=== PATIENT | male | born 1975 | race Caucasian/White ===

== ENCOUNTER 2017-08-11 07:58 | Inpatient (IN) | payer MEDICAID, OTHER ==
[2017-08-11] VITALS (9 sets, daily range): BP systolic 120–157; BP diastolic 59–100; PULSE 56–103; RESP 16–30; TEMP 96–98.3; O2SAT 88–98
[~2017-08-11] VITALS: Ht 185.4 cm; Wt 110.0 kg
[~2017-08-11 07:58] MED LIST: MECL25 PO; NAPR220T95 OR; NAPR550 PO; TRIAMC.1%T TOP; Z.0.NO CURRENT MEDS
[2017-08-11] MEDS ORDERED: NALOXONE HCL 0.4 MG/ML AMP ONE (08:00)
[2017-08-11] MEDS ORDERED: NALOXONE HCL 2 MG/2 ML VIAL ONE ×2 (08:05→08:06)
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
[2017-08-11] MEDS ORDERED: NALOXONE HCL 2 MG/2 ML VIAL IV PUSH ONE (08:15)
[2017-08-11] MEDS ORDERED: NALOXONE HCL 0.4 MG/ML AMP IV PUSH ONE (08:15)
[2017-08-11] MEDS ORDERED: ONDANSETRON HCL 4 MG/2 ML VIAL IV PUSH ONE (08:15)
[2017-08-11] MEDS ORDERED: ASPIRIN 81 MG CHEW TAB PO ONE (08:30)
[2017-08-11] MEDS ORDERED: NITROGLYCERIN 2% OINT 1 GM PACKET TOP ONE (08:30)
[2017-08-11 08:42] LABS: AUTOMATED NEUTROPHIL # 5.9 TH/MM3 (1.8-7.7); BASOPHIL # 0.1 TH/MM3 (0-0.2); BASOPHIL % 0.6 % (0.0-2.0); EOSINOPHIL % 0.2 % (0.0-4.0); HEMATOCRIT 47.1 % (39.0-51.0); HEMO FLAGS DIFF FINAL; LYMPH % 43.2 % (9.0-44.0); MEAN CELL VOLUME 87.9 FL (80.0-100.0); MEAN CORPUSCULAR HEMOGLOBIN 30.4 PG (27.0-34.0); MEAN CORPUSCULAR HGB CONC 34.6 % (32.0-36.0); MONO % 5.4 % (0.0-8.0); NEUT % 50.6 % (16.0-70.0); PLATELET COUNT 236 TH/MM3 (150-450); RED BLOOD COUNT 5.36 MIL/MM3 (4.50-5.90); RED CELL DISTRIBUTION WIDTH 14.6 % (11.6-17.2); WHITE BLOOD COUNT 11.6 TH/MM3 (4.0-11.0)
[2017-08-11 08:50] LABS: APTT (PATIENT) 24.5 SEC (24.3-30.1); PROTHROMBIN TIME - PATIENT 10.9 SEC (9.8-11.6)
--- NOTE | 2017-08-11 08:57 | RADRPT ---
EXAM DATE/TIME: 08/11/2017 08:24 [facility] COMPARISON: No previous studies available for comparison. INDICATIONS : Low pulse ox. MEDICAL HISTORY : None. SURGICAL HISTORY : None. ENCOUNTER: Initial ACUITY: 1 day PAIN SCORE: Non-responsive. LOCATION: Bilateral chest FINDINGS: A single portable frontal view the chest shows a top normal heart size. A patchy parenchymal opacity is seen within both lung bases medially. No effusions. Bony structures are unremarkable. CONCLUSION: 1. Top normal heart size. 2. Bibasilar parenchymal consolidations potentially related to atelectasis. Jb Morejon Jr., MD on August 11, 2017 at 8:53 Board Certified Radiologist. This report was verified electronically.
[2017-08-11 09:07] LABS: ALKALINE PHOSPHATASE 75 U/L (45-117); ALT (GPT) 68 U/L (12-78); ANION GAP 19 MEQ/L (5-15); AST (GOT) 43 U/L (15-37); BICARBONATE 14.8 MEQ/L (21.0-32.0); BLOOD UREA NITROGEN 11 MG/DL (7-18); CHLORIDE 102 MEQ/L (98-107); GLOMERULAR FILTRATION RATE 52 ML/MIN (>89); SODIUM (NA) 136 MEQ/L (136-145); TOTAL BILIRUBIN ADULT 0.4 MG/DL (0.2-1.0)
[2017-08-11 09:17] LABS: POTASSIUM 2.4 MEQ/L (3.5-5.1)
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
[2017-08-11] MEDS ORDERED: POTASSIUM CHLOR 20 MEQ PREMIX 100 ML IV ONE (09:30)
[2017-08-11] MEDS ORDERED: CLINDAMYCIN INJ 600 MG in SODIUM CHLORIDE 0.9% INJ 100 ML IV ONE (10:30)
[2017-08-11] MEDS ORDERED: LEVOFLOXACIN 500 MG PREMIX INJ 100 ML IV ONE (10:30)
[2017-08-11] MEDS ORDERED: SODIUM CHLORIDE 0.9% FLUSH 10 ML FLUSH IV FLUSH PRN ×2 (10:45→11:15)
--- NOTE | 2017-08-11 10:53 | HHI.HP ---
HPI Service Family Medicine Primary Care Physician No Primary Care Physician Admission Diagnosis OPIATE OVERDOSE/HYPOKALEMIA/NBA LUNG INFILTRATE Diagnoses: International Travel<30 Days: No (UTO ) Contact w/Intl Traveler<30days: No (UTO ) History of Present Illness CC: "I guess I passed out" Patient is a 42 year old male with history of HTN and drug use who presents via [facility] after being found unconscious in his car. The car was running but patient was unconscious and not breathing, responding to Narcan 0.4mg IV dose. He reports feeling foggy at time of interview. He required 2.8mg Narcan in divided doses in ED prior to admission to hospital and is noted to be significantly hypokalemic. Last night he went to [facility] in [place]. He reports snorting heroin, "wasn't a lot." He does not recall what happened after that. He feels tired and short of breath. He denies chest pain. He has noted dyspnea worsening over the last couple of months, but is nonspecific in describing it. It has been associated with minimal activity ("talking") and exertion at work. He works at [employer] and exertion during work triggers inability to catch his breath. (Tara Vidal MD R2) Review of Systems Constitutional: DENIES: Fever, Weight gain, Weight loss, Chills Eyes: DENIES: Blurred vision, Diplopia, Eye pain Respiratory: DENIES: Cough, Wheezing Cardiovascular: COMPLAINS OF: Syncope, Lower Extremity Edema, DENIES: Chest pain, Palpitations, Claudication Gastrointestinal: DENIES: Abdominal pain, Black stools, Bloody stools, Constipation, Diarrhea, Nausea, Vomiting, Difficulty Swallowing Genitourinary: DENIES: Urinary incontinence, Urgency, Hematuria, Dysuria Integumentary: DENIES: Pruritus, Rash Hematologic/lymphatic: DENIES: Bruising, Lymphadenopathy Neurologic: DENIES: Headache, Localized weakness, Paresthesias, Seizures, Poor Balance Psychiatric: DENIES: Anxiety, Depression, Suicidal Ideation, Homicidal Ideation (Tara Vidal MD R2) Past Family Social History Past Medical History HTN - not on meds Past Surgical History Meniscectomy L knee Reported Medications None reported (Tara Vidal MD R2) Allergies: Coded Allergies: Sulfa (Sulfonamide Antibiotics) (Unverified Allergy, Mild, UNKN, 08/11/17) carbamazepine (Unverified Allergy, Mild, UNKN, 08/11/17) Active Ordered Medications Inpatient Medications Aspirin (Aspirin Chew) 162 mg ONCE ONCE PO Last administered on 08/11/17 08: 42; Start 08/11/17 at 08:30; Stop 08/11/17 at 08:31; Status DC Clindamycin Phosphate 600 mg/ Sodium Chloride 104 ml @ 208 mls/hr ONCE ONCE IV ; Start 08/11/17 at 10:30; Stop 08/11/17 at 10:59 Levofloxacin/ Dextrose 100 ml @ 100 mls/hr ONCE ONCE IV ; Start 08/11/17 at 10:30; Stop 08/11/17 at 11:29 Naloxone HCl (Narcan Inj) 0.4 mg ONCE ONCE IV PUSH Last administered on 08:03; Start 08/11/17 at 08:15; Stop 08/11/17 at 08:16; Status DC Nitroglycerin (Nitroglycerin 2% Oint) 1 inch ONCE ONCE TOP Last administered on 08/11/17 08:42; Start 08/11/17 at 08:30; Stop 08/11/17 at 08:31; Status DC Ondansetron HCl (Zofran Inj) 4 mg ONCE ONCE IV PUSH Last administered on 08/11 08:22; Start 08/11/17 at 08:15; Stop 08/11/17 at 08:16; Status DC Potassium Chloride 100 ml @ 50 mls/hr ONCE ONCE IV Last administered on 08/11 09:57; Start 08/11/17 at 09:30; Stop 08/11/17 at 11:29 Family History Adopted, unknown family history Social History Lives with his mother and 9 year old son Tobacco 1/2-1PPD x 20 years Cocaine, heroin last use last night, "not regularly" ETOH: drinks Rum and Coke, 2x weeks (Tara Vidal MD R2) Physical Exam Vital Signs Vital Signs Date Time Temp Pulse Resp B/P (MAP) Pulse Ox O2 Delivery O2 Flow Rate FiO2 08/11/17 08:55 83 20 127/70 (89) 94 Nasal Cannula 6.00 08/11/17 08:03 94 Nasal Cannula 6.00 08/11/17 08:03 30 88 Room Air 08/11/17 08:00 98.3 103 30 157/100 (002) 88 Physical Exam GENERAL: well-nourished well-developed obese white male in NAD SKIN: Warm and dry. No rashes or ecchymoses HEAD: Atraumatic. Normocephalic. EYES: Pupils equal and round. No scleral icterus. No injection or drainage. ENT: No nasal bleeding or discharge. Mucous membranes pink and moist. NECK: Trachea midline. No LAD or thyromegaly. CARDIOVASCULAR: Regular rate and rhythm. No murmurs, gallops, or rubs noted. No JVD. Normal 2+ pulses in distal extremities bilaterally. RESPIRATORY: No accessory muscle use. Clear to auscultation. Breath sounds equal bilaterally. GASTROINTESTINAL: Abdomen soft, non-tender, nondistended. Obese. Hepatic and splenic margins not palpable. MUSCULOSKELETAL: Extremities without clubbing, cyanosis, or edema. No obvious deformities. NEUROLOGICAL: Awake and alert. No cranial nerve deficits. Motor grossly within normal limits. General strength exam is normal. Normal speech. PSYCHIATRIC: Appropriate mood and affect; insight and judgment normal. No SI/HI. Laboratory Laboratory Tests Test 08/11/17 08:15 White Blood Count 11.6 Red Blood Count 5.36 Hemoglobin 16.3 Hematocrit 47.1 Mean Corpuscular Volume 87.9 Mean Corpuscular Hemoglobin 30.4 Mean Corpuscular Hemoglobin Concent 34.6 Red Cell Distribution Width 14.6 Platelet Count 236 Mean Platelet Volume 8.0 Neutrophils (%) (Auto) 50.6 Lymphocytes (%) (Auto) 43.2 Monocytes (%) (Auto) 5.4 Eosinophils (%) (Auto) 0.2 Basophils (%) (Auto) 0.6 Neutrophils # (Auto) 5.9 Lymphocytes # (Auto) 5.0 Monocytes # (Auto) 0.6 Eosinophils # (Auto) 0.0 Basophils # (Auto) 0.1 CBC Comment DIFF FINAL Differential Comment Prothrombin Time 10.9 Prothromb Time International Ratio 1.0 Activated Partial Thromboplast Time 24.5 Blood Urea Nitrogen 11 Creatinine 1.50 Random Glucose 251 Total Protein 8.0 Albumin 4.0 Calcium Level 8.5 Alkaline Phosphatase 75 Aspartate Amino Transf (AST/SGOT) 43 Alanine Aminotransferase (ALT/SGPT) 68 Total Bilirubin 0.4 Sodium Level 136 Potassium Level 2.4 Chloride Level 102 Carbon Dioxide Level 14.8 Anion Gap 19 Estimat Glomerular Filtration Rate 52 Troponin I LESS THAN 0.02 Lipase 300 (Tara Vidal MD R2) Result Diagram: 08/11/1781408/11/17814 Imaging Last Impressions Head CT 08/11/17809 Signed Impressions: Service Date/Time: Friday, August 11, 2017 09:04 - CONCLUSION: Normal examination. Jb Morejon Jr., MD Chest X-Ray 08/11/17809 Signed Impressions: Service Date/Time: Friday, August 11, 2017 08:24 - CONCLUSION: 1. Top normal heart size. 2. Bibasilar parenchymal consolidations potentially related to atelectasis. Jb Morejon Jr., MD Abdomen/Pelvis CT 08/11/17809 Signed Impressions: Service Date/Time: Friday, August 11, 2017 09:07 - CONCLUSION: 1. Bibasilar groundglass opacities which likely reflects atelectasis. However, differential considerations include aspiration given history of unresponsiveness. 2. Otherwise, no acute CT findings in the abdomen or pelvis. Oscar Granados MD (Tara Vidal MD R2) Caprini VTE Risk Assessment Caprini VTE Risk Assessment: Mod/High Risk (score >= 2) Caprini Risk Assessment Model Point Value = 1 Point Value = 2 Point Value = 3 Point Value = 5 Age 41-60 Minor surgery BMI > 25 kg/m2 Swollen legs Varicose veins or History of unexplained or recurrent spontaneous Oral contraceptives or hormone replacement Sepsis (< 1 month) Serious lung disease, including pneumonia (< 1 month) Abnormal pulmonary function Acute myocardial infarction Congestive heart failure (< 1 month) History of inflammatory bowel disease Medical patient at bed rest Age 61-74 Arthroscopic surgery Major open surgery (> 45 min) Laparoscopic surgery (> 45 min) Malignancy Confined to bed (> 72 hours) Immobilizing plaster cast Central venous access Age >= 75 History of VTE Family history of VTE Factor V Leiden Prothrombin [id number] Lupus anticoagulant Anticardiolipin antibodies Elevated serum homocysteine Heparin-induced thrombocytopenia Other congenital or acquired thrombophilia Stroke (< 1 month) Elective arthroplasty Hip, pelvis, or leg fracture Acute spinal cord injury (< 1 month) Prophylaxis Regimen Total Risk Factor Score Risk Level Prophylaxis Regimen 0-1 Low Early ambulation 2 Moderate Order ONE of the following: *Sequential Compression Device (SCD) *Heparin 5000 units SQ BID 3-4 Higher Order ONE of the following medications: *Heparin 5000 units SQ TID *Enoxaparin/Lovenox 40 mg SQ daily (WT < 150 kg, CrCl > 30 mL/min) *Enoxaparin/Lovenox 30 mg SQ daily (WT < 150 kg, CrCl > 10-29 mL/min) *Enoxaparin/Lovenox 30 mg SQ BID (WT < 150 kg, CrCl > 30 mL/min) AND/OR *Sequential Compression Device (SCD) 5 or more Highest Order ONE of the following medications: *Heparin 5000 units SQ TID (Preferred with Epidurals) *Enoxaparin/Lovenox 40 mg SQ daily (WT < 150 kg, CrCl > 30 mL/min) *Enoxaparin/Lovenox 30 mg SQ daily (WT < 150 kg, CrCl > 10-29 mL/min) *Enoxaparin/Lovenox 30 mg SQ BID (WT < 150 kg, CrCl > 30 mL/min) AND *Sequential Compression Device (SCD) (Tara Vidal MD R2) Assessment and Plan Assessment and Plan 42 year old male with history of untreated HTN and drug abuse who presents unresponsive with suspected drug overdose. He responded well to Narcan in the ED and is responsive and breathing comfortably at time of admission. Basic labs, CXR, CT brain, CT chest ordered in ED and notable for hypokalemia, atelectasis vs. pneumonitis, ISMAEL. EKG additionally notable for ST depressions in leads V4-V6. He will be admitted for close monitoring of cardiac enzymes, respiratory status , and electrolyte dyscrasia. He meets inpatient criteria based on hypokalemia. Code Status FULL CODE Discussed Condition With Dr. Doreen Manzanraes (Tara Vidal MD R2) Problem List: (1) Acute drug intoxication ICD Codes: F19.929 - Other psychoactive substance use, unspecified with intoxication, unspecified Status: Acute Plan: Acute drug intoxication per patient report, taking heroin and cocaine. He required Narcan 2.8mg in route to ED and in ED, and is now alert and in NAD. GCS reportedly 4 on scene prior to Narcan, now 15. * UDS * ETOH, Salicylates, Tylenol ordered * Monitor closely on med surg floor, escalate care as needed. (2) Abnormal finding on EKG ICD Codes: R94.31 - Abnormal electrocardiogram [ECG] [EKG] Status: Acute Plan: Noted to have ST depressions in leads V4-V6. Troponin negative x 1. * Repeat EKG stat now * Trend cardiac enzymes q6hr * Telemetry * In ED: Aspirin 162mg x 1, nitropaste (3) Hypokalemia ICD Codes: E87.6 - Hypokalemia Status: Acute Plan: Noted. ED intervention = 20meq KCl (4) Atelectasis ICD Codes: J98.11 - Atelectasis Status: Acute Plan: Noted on CXR and CT chest, possible diagnoses include aspiration pneumonitis, aspiration PNA, atelectasis, CAP. Not hypoxic at this time, but on NC. * Monitor oxygenation, goal sat >93% * Consider repeat CXR for better exposure, PA and lateral * Pt received Clidamycin and Levaquin in ED x 1 dose each (5) ISMAEL (acute kidney injury) ICD Codes: N17.9 - Acute kidney failure, unspecified Status: Acute Plan: Noted. Baseline is normal. Suspect pre-renal etiology, likely dehydration * Repeat BMP this afternoon * Monitor BMP daily * Avoid nephrotoxin agents (6) HTN, goal below 140/80 ICD Codes: I10 - Essential (primary) hypertension Status: Chronic Plan: Monitor closely. History of amlodipine use. Will consider restarting. No PCP * PRN clonidine for SBP >180/100 (7) Fluids/Electrolytes/Nutrition/Prophylaxis Status: Acute Plan: Fluids: swallow study at bedside, then NPO until repeat EKG/troponin, then possibly PO hydration Electrolytes: HypoK noted. Repletion PO. Monitor and replete as needed Nutrition: NPO, then heart-healthy diet once cleared DVT Prophylaxis: Early ambulation. Lovenox 40mg subQ q24hr/bilateral SCDs GI Prophylaxis: Protonix 40mg PO daily Disposition: pending cardiac workup, observation, PT eval, possibly discharge tomorrow (Tara Vidal MD R2) Physician Certification 2 Midnight Certification Type: Admission for Inpatient Services Order for Inpatient Services The services are ordered in accordance with Medicare regulations or non- Medicare payer requirements, as applicable. In the case of services not specified as inpatient-only, they are appropriately provided as inpatient services in accordance with the 2-midnight benchmark. Estimated LOS (days): 3 days is the estimated time the patient will need to remain in the hospital, assuming treatment plan goals are met and no additional complications. Post-Hospital Plan: Not yet determined (Tara Vidal MD R2) Notes: Patient seen and examined. Case reviewed and discussed with the resident team. Agree with plan of care as discussed with me and documented in the resident note. (Doreen Toro MD) Problem Qualifiers (1) Acute drug intoxication: Qualified Codes: F19.929 - Other psychoactive substance use, unspecified with intoxication, unspecified Tara Vidal MD R2 Aug 11, 2017 10:53 Doreen Toro MD Aug 11, 2017 15:41
[2017-08-11] MEDS ORDERED: ACETAMINOPHEN 325 MG TAB PO PRN (11:15)
[2017-08-11] MEDS ORDERED: MAGNESIUM HYDROXIDE SUSP 30 ML CUP PO PRN (11:15)
[2017-08-11] MEDS ORDERED: LORazepam 2 MG/ML VIAL IV PUSH PRN ×4 (11:15)
[2017-08-11] MEDS ORDERED: BISACODYL 10 MG SUPP RECTAL PRN (11:15)
[2017-08-11] MEDS ORDERED: LORazepam 2 MG TAB PO PRN (11:15)
[2017-08-11] MEDS ORDERED: SENNOSIDES 8.6 MG TAB PO PRN (11:15)
[2017-08-11] MEDS ORDERED: NALOXONE HCL 0.4 MG/ML AMP IV PUSH PRN ×2 (11:15→11:45)
[2017-08-11] MEDS ORDERED: POTASSIUM CHLORIDE 10 MEQ CONTROLLED RELEASE TAB PO ONE (11:15)
[2017-08-11] MEDS ORDERED: ONDANSETRON HCL 4 MG/2 ML VIAL IVP PRN (11:15)
[2017-08-11] MEDS ORDERED: LACTULOSE SYRUP 20 GM/30 ML CUP PO PRN (11:15)
[2017-08-11] MEDS ORDERED: SODIUM CHLORIDE 0.9% FLUSH 10 ML FLUSH IV FLUSH SCH (11:15)
[2017-08-11] MEDS ORDERED: FLUMAZENIL 0.5 MG/5 ML VIAL IV PUSH PRN (11:15)
[2017-08-11] MEDS ORDERED: LORazepam 1 MG TAB PO PRN (11:15)
--- NOTE | 2017-08-11 11:19 | HHI.FPPN ---
Subjective Remarks Pt. seen, examined and discussed with the Med A team. This is a 42 yo male who was found unresponsive in his car in a neighbor's yard this a.m. He was given Narcan 0.4 X2 in the field and was able to breathe on his own. He was transported to [facility] ED where he required 2 more doses of Narcan 0.4. He is seen on 5 liters O2 via nc, complaining of some mild SOB with no CP. He reports that he took heroin and cocaine which he snorted last night after work. He went to a bar and was given this substance. He often uses heroin an cocaine and drinks Rum and coke fairly frequently. Denies ever having injected drugs. Currently on no medications or supplements; no herbals. Has never blacked out or had withdrawal. He had seizures as a child but none as an adult. Has a young son, with whom he lives, as well as his mother. Works for [employer]. He is between doctors at this time, having been diagnosed with HTN and was on Norvasc 10 mg in the past. See H&P for this admission for additional past, family and social history as well as the ROS at the time of admission. Objective Vitals Vital Signs Date Time Temp Pulse Resp B/P (MAP) Pulse Ox O2 Delivery O2 Flow Rate FiO2 08/11/17 08:55 83 20 127/70 (89) 94 Nasal Cannula 6.00 08/11/17 08:03 94 Nasal Cannula 6.00 08/11/17 08:03 30 88 Room Air 08/11/17 08:00 98.3 103 30 157/100 (119) 88 Result Diagram: 08/11/17 0815 08/11/1715 Other Results Laboratory Tests Test 08/11/17 08:15 White Blood Count 11.6 TH/MM3 Red Blood Count 5.36 MIL/MM3 Hemoglobin 16.3 GM/DL Hematocrit 47.1 % Mean Corpuscular Volume 87.9 FL Mean Corpuscular Hemoglobin 30.4 PG Mean Corpuscular Hemoglobin Concent 34.6 % Red Cell Distribution Width 14.6 % Platelet Count 236 TH/MM3 Mean Platelet Volume 8.0 FL Neutrophils (%) (Auto) 50.6 % Lymphocytes (%) (Auto) 43.2 % Monocytes (%) (Auto) 5.4 % Eosinophils (%) (Auto) 0.2 % Basophils (%) (Auto) 0.6 % Neutrophils # (Auto) 5.9 TH/MM3 Lymphocytes # (Auto) 5.0 TH/MM3 Monocytes # (Auto) 0.6 TH/MM3 Eosinophils # (Auto) 0.0 TH/MM3 Basophils # (Auto) 0.1 TH/MM3 CBC Comment DIFF FINAL Differential Comment Prothrombin Time 10.9 SEC Prothromb Time International Ratio 1.0 RATIO Activated Partial Thromboplast Time 24.5 SEC Blood Urea Nitrogen 11 MG/DL Creatinine 1.50 MG/DL Random Glucose 251 MG/DL Total Protein 8.0 GM/DL Albumin 4.0 GM/DL Calcium Level 8.5 MG/DL Alkaline Phosphatase 75 U/L Aspartate Amino Transf (AST/SGOT) 43 U/L Alanine Aminotransferase (ALT/SGPT) 68 U/L Total Bilirubin 0.4 MG/DL Sodium Level 136 MEQ/L Potassium Level 2.4 MEQ/L Chloride Level 102 MEQ/L Carbon Dioxide Level 14.8 MEQ/L Anion Gap 19 MEQ/L Estimat Glomerular Filtration Rate 52 ML/MIN Troponin I LESS THAN 0.02 NG/ML Lipase 300 U/L 12 lead EKG shows some ST depression in multiple leads. Imaging Last [address] 08/11/17809 Signed Impressions: Service Date/Time: Friday, August 11, 2017 09:04 - CONCLUSION: Normal examination. Jb Morejon Jr., MD Chest X-Ray 08/11/17809 Signed Impressions: Service Date/Time: Friday, August 11, 2017 08:24 - CONCLUSION: 1. Top normal heart size. 2. Bibasilar parenchymal consolidations potentially related to atelectasis. Jb Morejon Jr., MD Abdomen/Pelvis CT 08/11/17809 Signed Impressions: Service Date/Time: Friday, August 11, 2017 09:07 - CONCLUSION: 1. Bibasilar groundglass opacities which likely reflects atelectasis. However, differential considerations include aspiration given history of unresponsiveness. 2. Otherwise, no acute CT findings in the abdomen or pelvis. Oscar Granados MD Objective Remarks O. CONSTITUTIONAL/GEN: normally nourished, in NAD. Drowsy, complaining of dry mouth. EYES: conjunctiva normal, PERRLA but slightly miotic, EOMI. ENT: Mouth and pharynx normal. NECK: thyroid midline, carotids symmetrical. LUNGS: clear posteriorly after a cough, respiratory effort is normal. CARDIOVASCULAR: RR without murmur or gallop. No significant edema. GI/ABD: soft without masses, without organomegaly. BS scant. : no CVA tenderness NEURO: No focal deficits. SKIN: color normal, no rashes noted. HEME/LYMPH: no bruising, petechia or significant adenopathy MUSC: back is normal in appearance. Extremities are normal in appearance. PSYCH/MENTAL STATUS: Alert and oriented x 3. A/P Assessment and Plan polysubstance abuse, tobacco abuse Discharge Planning Anticipate discharge tomorrow if labs and EKG stable. Attending Attestation Patient seen and examined. Case reviewed and discussed with the resident team. Agree with plan of care as discussed with me and documented in the resident note. Doreen Toro MD Aug 11, 2017 11:19
[2017-08-11] MEDS ORDERED: MORPHINE SULFATE 2 MG/ML INJ IV PUSH PRN (11:45)
[2017-08-11] MEDS ORDERED: NITROGLYCERIN 0.4 MG SL 25 TABS/BTL SL PRN (11:45)
[2017-08-11] MEDS ORDERED: cloNIDine HCL 0.1 MG TAB PO PRN (11:45)
[2017-08-11 11:58] LABS: ALCOHOL 95 MG/DL (0-5)
[2017-08-11 11:59] LABS: ACETAMINOPHEN LESS THAN 2.0 MCG/ML (10.0-30.0)
[2017-08-11] MEDS ORDERED: ENOXAPARIN SODIUM 40 MG/0.4 ML SYRINGE SQ SCH (14:00)
[2017-08-11] MEDS ORDERED: MULTIVITAMIN INJ 10 ML, THIAMINE INJ 100 MG, FOLIC ACID INJ 1 MG in SODIUM CHLORID 0.9%... IV SCH (14:00)
[2017-08-11] MEDS: PANTOPRAZOLE SOD 40 MG DELAYED RELEASE TAB PO SCH (16:39)
[2017-08-11] MEDS: DOCUSATE SODIUM 50 MG/SENNA 8.6 MG TAB PO SCH (21:01)
[2017-08-11] MEDS: SODIUM CHLORIDE 0.9% FLUSH 10 ML FLUSH IV FLUSH SCH (21:01)
--- NOTE | 2017-08-11 21:07 | EKG ---
Date Performed: 08/11/2017 Time Performed: 08:03:13 PTAGE: 42 years EKG: SINUS TACHYCARDIA INCOMPLETE RIGHT BUNDLE BRANCH BLOCK MODERATE ST DEPRESSION ABNORMAL ECG NO PREVIOUS TRACING DOCTOR: Greg Doherty Interpretating Date/Time 08/11/2017 21:06:58
[2017-08-11] MEDS ORDERED: GLUCAGON 1 MG/ML VIAL OTHER PRN (22:15)
[2017-08-11] MEDS ORDERED: DEXTROSE 50% IN WATER 50 ML VIAL(D50) IV PUSH PRN (22:15)
[2017-08-12] VITALS: BP 117/71; PULSE 62; RESP 17; TEMP 96.8; O2SAT 98
[2017-08-12 01:15] LABS: POTASSIUM 4.1 MEQ/L (3.5-5.1)
[2017-08-12 04:00] VITALS: BP 124/73; PULSE 78; RESP 17; TEMP 97.2; O2SAT 98
[2017-08-12] MEDS: INSULIN ASPART SUPPLEMENTAL SCALE SQ SCH ×2 (07:57→11:23)
[2017-08-12 08:00] VITALS: BP 139/92; PULSE 51; RESP 21; TEMP 97.1; O2SAT 94; O2SAT 96
[2017-08-12] MEDS: PANTOPRAZOLE SOD 40 MG DELAYED RELEASE TAB PO SCH (08:38)
[2017-08-12] MEDS: DOCUSATE SODIUM 50 MG/SENNA 8.6 MG TAB PO SCH (08:38)
[2017-08-12] MEDS: SODIUM CHLORIDE 0.9% FLUSH 10 ML FLUSH IV FLUSH SCH (08:38)
[2017-08-12 08:44] LABS: BLOOD, URINE NEG (NEG); COMMENT (UR) CULT NOT INDICATED; CULTURE IF INDICATED CULT NOT INDICATED; GLUCOSE,URINE NEG (NEG); KETONE, URINE NEG (NEG); MUCUS URINE FEW /lpf (OCC); NITRITE,URINE NEG (NEG); SQUAMOUS EPITHELIAL CELL URINE <1 /hpf (0-5); URINE COLOR YELLOW (YELLW/STRAW)
--- NOTE | 2017-08-12 08:49 | RADRPT ---
EXAM DATE/TIME: 08/12/2017 08:40 [facility] COMPARISON: CHEST SINGLE AP, August 11, 2017, 8:24. INDICATIONS : Dyspnea MEDICAL HISTORY : None. SURGICAL HISTORY : None. ENCOUNTER: Subsequent ACUITY: 2 days PAIN SCORE: Non-responsive. LOCATION: chest FINDINGS: A single view of the chest demonstrates the lungs to be symmetrically aerated without evidence of mas s, infiltrate or effusion. The cardiomediastinal contours are unremarkable. Osseous structures are intact. CONCLUSION: 1. No acute cardiopulmonary disease. Oscar Granados MD on August 12, 2017 at 8:48 Board Certified Radiologist. This report was verified electronically.
[2017-08-12 09:02] LABS: AUTOMATED NEUTROPHIL # 3.6 TH/MM3 (1.8-7.7); BASOPHIL % 0.5 % (0.0-2.0); EOSINOPHIL % 0.6 % (0.0-4.0); HEMATOCRIT 42.4 % (39.0-51.0); HEMO FLAGS DIFF FINAL; LYMPH % 44.1 % (9.0-44.0); LYMPHOCYTE # 3.3 TH/MM3 (1.0-4.8); MEAN CELL VOLUME 86.9 FL (80.0-100.0); MEAN CORPUSCULAR HEMOGLOBIN 30.2 PG (27.0-34.0); MEAN CORPUSCULAR HGB CONC 34.7 % (32.0-36.0); MONO % 6.6 % (0.0-8.0); NEUT % 48.2 % (16.0-70.0); PLATELET COUNT 186 TH/MM3 (150-450); RED BLOOD COUNT 4.88 MIL/MM3 (4.50-5.90); RED CELL DISTRIBUTION WIDTH 14.9 % (11.6-17.2); WHITE BLOOD COUNT 7.5 TH/MM3 (4.0-11.0)
[2017-08-12 09:34] LABS: ANION GAP 8 MEQ/L (5-15); AST (GOT) 38 U/L (15-37); BICARBONATE 23.7 MEQ/L (21.0-32.0); BLOOD UREA NITROGEN 13 MG/DL (7-18); CHLORIDE 105 MEQ/L (98-107); GLOMERULAR FILTRATION RATE 69 ML/MIN (>89); POTASSIUM 3.9 MEQ/L (3.5-5.1); SODIUM (NA) 137 MEQ/L (136-145)
[2017-08-12 09:38] LABS: ALKALINE PHOSPHATASE 58 U/L (45-117); ALT (GPT) 63 U/L (12-78); TOTAL BILIRUBIN ADULT 0.7 MG/DL (0.2-1.0)
--- NOTE | 2017-08-12 10:42 | HHI.DCPOC ---
Discharge Care Plan Diagnosis: (1) Acute drug intoxication (2) ISMAEL (acute kidney injury) (3) HTN, goal below 140/80 Goals to Promote Your Health * To prevent worsening of your condition and complications * To maintain your health at the optimal level Directions to Meet Your Goals Take your medications as prescribed Follow your dietary instruction Follow activity as directed Keep your appointments as scheduled Take your immunizations and boosters as scheduled If your symptoms worsen call your PCP, if no PCP go to Urgent Care Center or Emergency Room Smoking is Dangerous to Your Health. Avoid second hand smoke Call the 24-hour hour crisis hotline for domestic abuse at Tara Vidal MD R2 Aug 12, 2017 10:42
--- NOTE | 2017-08-12 10:43 | HHI.FPPN ---
Subjective Remarks Patient was seen and examined this morning. He symptomatically had improved back to baseline. He denied any fevers, chills, chest pain, shortness of breath , nausea, vomiting, headaches, confusion. He recalls that he went to a democrat the night before admission and was given a singular pill of unknown identity from someone he did not know. He was told it was synthetic heroin. The next year remembers is being at [place] yesterday. He is eating and drinking without difficulty. He is ready to be discharged. (Tara Vidal MD R2) Objective Vitals Vital Signs Date Time Temp Pulse Resp B/P (MAP) Pulse Ox O2 Delivery O2 Flow Rate FiO2 08/12/17 08:00 96 21 08/12/17 08:00 97.1 51 21 139/92 (108) 94 08/12/17 04:00 97.2 78 17 124/73 (90) 98 08/12/17 00:00 96.8 62 17 117/71 (86) 98 08/11/17 22:08 20 08/11/17 22:07 93 Nasal Cannula 4.00 08/11/17 20:00 96.0 60 17 120/74 (89) 98 08/11/17 20:00 56 08/11/17 16:00 96.6 62 17 138/85 (102) 94 08/11/17 13:40 96.4 64 17 136/87 (103) 97 08/11/17 12:54 08/11/17 12:50 73 20 130/59 (82) 97 Nasal Cannula 4.00 08/11/17 11:22 96 Nasal Cannula 5.00 08/11/17 11:13 71 16 134/71 (92) 95 Nasal Cannula 6.00 I/O 08/11/17 08/11/17 08/11/17 08/12/17 08/12/17 08/12/17 07:00 15:00 23:00 07:00 15:00 23:00 Intake Total 300 ml 0 ml 240 ml 120 ml Balance 300 ml 0 ml 240 ml 120 ml Intake Oral 0 ml 240 ml 120 ml IV Total 300 ml # Voids 2 2 # Bowel Movements 0 (Tara Vidal MD R2) Result Diagram: 08/12/17 0755 08/12/17 0755 Imaging Last Impressions Chest X-Ray 08/12/17 0000 Signed Impressions: Service Date/Time: July 08:40 - CONCLUSION: 1. No acute cardiopulmonary disease. Oscar Granados MD Head CT 08/11/17809 Signed Impressions: Service Date/Time: Friday, August 11, 2017 09:04 - CONCLUSION: Normal examination. Jb Morejon Jr., MD Abdomen/Pelvis CT 08/11/17809 Signed Impressions: Service Date/Time: Friday, August 11, 2017 09:07 - CONCLUSION: 1. Bibasilar groundglass opacities which likely reflects atelectasis. However, differential considerations include aspiration given history of unresponsiveness. 2. Otherwise, no acute CT findings in the abdomen or pelvis. Oscar Granados MD Objective Remarks GENERAL: well-nourished well-developed obese white male in NAD. He is lying in bed comfortably. SKIN: Warm and dry. No rashes or ecchymoses HEAD: Atraumatic. Normocephalic. EYES: Pupils equal and round. No scleral icterus. No injection or drainage. ENT: No nasal bleeding or discharge. Mucous membranes pink and moist. NECK: Trachea midline. No LAD or thyromegaly. CARDIOVASCULAR: Regular rate and rhythm. No murmurs, gallops, or rubs noted. No JVD. Normal 2+ pulses in distal extremities bilaterally. RESPIRATORY: No accessory muscle use. Clear to auscultation bilaterally with no wheezes or rhonchi. Breath sounds equal bilaterally. GASTROINTESTINAL: Abdomen soft, non-tender, nondistended. Obese. Hepatic and splenic margins not palpable. MUSCULOSKELETAL: Extremities without clubbing, cyanosis, or edema. No obvious deformities. NEUROLOGICAL: Awake and alert. No cranial nerve deficits. Motor grossly within normal limits. General strength exam is normal. Normal speech. PSYCHIATRIC: Appropriate mood and affect; insight and judgment normal. No SI/HI. Medications and IVs Inpatient Medications Acetaminophen (Tylenol) 650 mg Q4H PRN PO TEMP > 100.4 Last administered on 21:08; Start 08/11/17 at 11:15; Stop 08/12/17 at 12:39; Status DC Aspirin (Aspirin Chew) 162 mg ONCE ONCE PO Last administered on 10/25/17at 08: 42; Start 08/11/17 at 08:30; Stop 08/11/17 at 08:31; Status DC Bisacodyl (Dulcolax Supp) 10 mg DAILY PRN RECTAL SEVERE CONSITIPATION; Start 08/11/17 at 11:15; Stop 08/12/17 at 12:39; Status DC Clindamycin Phosphate 600 mg/ Sodium Chloride 104 ml @ 208 mls/hr ONCE ONCE IV Last administered on 08/11/17 12:04; Start 08/11/17 at 10:30; Stop 08/11 at 10:59; Status DC Clonidine (Catapres) 0.1 mg Q6H PRN PO SBP> OR = 180, DBP> OR = 100; Start at 11:45; Stop 08/12/17 at 12:39; Status DC Dextrose (D50w (Vial) Inj) 50 ml UNSCH PRN IV PUSH HYPOGLYCEMIA-SEE COMMENTS; Start 08/11/17 at 22:15; Stop 08/12/17 at 12:39; Status DC Enoxaparin Sodium (Lovenox Inj) 40 mg Q24H SQ Last administered on 08/11/17 14:44; Start 08/11/17 at 14:00; Stop 08/12/17 at 12:39; Status DC Flumazenil (Romazicon Inj) 0.2 mg Q1M PRN IV PUSH SEE LABEL COMMENTS; Start at 11:15; Stop 08/12/17 at 12:39; Status DC Glucagon (Glucagon Inj) 1 mg UNSCH PRN OTHER HYPOGLYCEMIA-SEE COMMENTS; Start 08/11/17 at 22:15; Stop 08/12/17 at 12:39; Status DC Insulin Aspart (NovoLOG SUPPLEMENTAL SCALE) 1 ACHS SLIDING SCALE SQ ; Start at 08:00; Stop 08/12/17 at 12:39; Status DC Lactulose (Lactulose Liq) 30 ml DAILY PRN PO SEVERE CONSITIPATION; Start 08/11 at 11:15; Stop 08/12/17 at 12:39; Status DC Levofloxacin/ Dextrose 100 ml @ 100 mls/hr ONCE ONCE IV Last administered on 08/11/17 11:12; Start 08/11/17 at 10:30; Stop 08/11/17 at 11:29; Status DC Lorazepam (Ativan Inj) 2 mg Q15M PRN IV PUSH CIWA > 20; Start 08/11/17 at 11: 15; Stop 08/12/17 at 12:39; Status DC Lorazepam (Ativan) 2 mg Q2H PRN PO CIWA 11-14; Start 08/11/17 at 11:15; Stop 08/12/17 at 12:39; Status DC Magnesium Hydroxide (Milk Of Magnesia Liq) 30 ml Q12H PRN PO Mild constipation ; Start 08/11/17 at 11:15; Stop 08/12/17 at 12:39; Status DC Morphine Sulfate (Morphine Inj) 2 mg Q5M PRN IV PUSH ANGINA; Start 08/11/17 at 11:45; Stop 08/12/17 at 12:39; Status DC Multivitamins 10 ml/Thiamine HCl 100 mg/Folic Acid 1 mg/Sodium Chloride 511.2 ml @ 125 mls/hr Q24H IV Last administered on 08/11/17 14:44; Start at 14:00; Stop 08/12/17 at 12:39; Status DC Naloxone HCl (Narcan Inj) 0.4 mg UNSCH X1 PRN IV PUSH RESP DEPRESSION OR HYPOTENSION; Start 08/11/17 at 11:45; Stop 08/11/17 at 13:40; Status DC Nitroglycerin (Nitroglycerin 2% Oint) 1 inch ONCE ONCE TOP Last administered on 08/11/17 08:42; Start 08/11/17 at 08:30; Stop 08/11/17 at 08:31; Status DC Nitroglycerin (Nitrostat Sl) 0.4 mg Q5M PRN SL ANGINA; Start 08/11/17 at 11:45 ; Stop 08/12/17 at 12:39; Status DC Ondansetron HCl (Zofran Inj) 4 mg Q6H PRN IVP NAUSEA OR VOMITING Last administered on 08/11/17 14:44; Start 08/11/17 at 11:15; Stop 08/12/17 at 12 :39; Status DC Pantoprazole Sodium (Protonix) 40 mg DAILY PO Last administered on 08/12/17 08:38; Start 08/11/17 at 12:45; Stop 10/26/17 at 12:39; Status DC Potassium Chloride (KCl) 40 meq ONCE ONCE PO Last administered on 08/11/17 15:44; Start 08/11/17 at 11:15; Stop 08/11/17 at 13:41; Status DC Senna/Docusate Sodium (Yaritza-Colace) 1 tab BID PO Last administered on t 08:38; Start 08/11/17 at 21:00; Stop 08/12/17 at 12:39; Status DC Sennosides (Senokot) 17.2 mg Q12H PRN PO Moderate constipation; Start at 11:15; Stop 08/12/17 at 12:39; Status DC Sodium Chloride (NS Flush) 2 ml BID IV FLUSH ; Start 08/11/17 at 11:15; Stop 08/11/17 at 13:36; Status DC (Tara Vidal MD R2) Urinary Catheter: No (Tara Vidal MD R2) Vascular Central Line Catheter: No (Tara Vidal MD R2) A/P Assessment and Plan 42 year old male with history of untreated HTN and drug abuse who presented unresponsive with suspected drug overdose. He responded well to Narcan in the ED and was responsive and breathing comfortably at time of admission. Overnight evaluation revealed no acute changes to his status and he was back to baseline the morning of 08/12. Basic labs, CXR, CT brain, CT chest ordered in ED and notable for hypokalemia, atelectasis vs. pneumonitis, ISMAEL. ISMAEL and electrolyte abnormalities resolved in addition to abnormal CXR findings. EKG initially notable for ST depressions in leads V4-V6 but repeat showed normal sinus rhythm. UA unremarkable. UDS positive for cocaine. Patient was counseled to discontinue use of illicit drugs and he expressed understanding of the risks to his life. He was discharged in stable condition. Discharge Planning Patient to be discharged home today (Tara Vidal MD R2) Attending Attestation Patient seen and examined. Case reviewed and discussed with the resident team. Agree with plan of care as discussed with me and documented in the resident note. (Doreen Toro MD) Problem List: (1) Acute drug intoxication ICD Codes: F19.929 - Other psychoactive substance use, unspecified with intoxication, unspecified Status: Acute Plan: Acute drug intoxication per patient report, taking heroin and cocaine. He required Narcan 2.8mg in route to ED and in ED, and is now alert and in NAD. GCS reportedly 4 on scene prior to Narcan, now 15. * UDS showing cocaine * EtOH level 95. Salicylates and Tylenol negative. * Monitor closely on med surg floor, escalate care as needed. (2) Abnormal finding on EKG ICD Codes: R94.31 - Abnormal electrocardiogram [ECG] [EKG] Status: Acute Plan: Noted to have ST depressions in leads V4-V6. Troponin negative x 1. * Repeat EKG stat now * Trend cardiac enzymes q6hr * Telemetry * In ED: Aspirin 162mg x 1, nitropaste (3) Hypokalemia ICD Codes: E87.6 - Hypokalemia Status: Resolved Plan: Noted. ED intervention = 20meq KCl. An additional 40 mEq potassium was given and repeat BMP shows resolution of hypokalemia. (4) Atelectasis ICD Codes: J98.11 - Atelectasis Status: Resolved Plan: Noted on CXR and CT chest, possible diagnoses include aspiration pneumonitis, aspiration PNA, atelectasis, CAP. Not hypoxic at this time, but on NC. * Monitor oxygenation, goal sat >93% * Consider repeat CXR for better exposure, PA and lateral * Pt received Clidamycin and Levaquin in ED x 1 dose each. This was not continued. * Repeat CXR 08/12 negative. (5) ISMAEL (acute kidney injury) ICD Codes: N17.9 - Acute kidney failure, unspecified Status: Acute Plan: Noted. Baseline is normal. Suspect pre-renal etiology, likely dehydration * Repeat BMP shows resolution of ISMAEL * Avoid nephrotoxin agents (6) HTN, goal below 140/80 ICD Codes: I10 - Essential (primary) hypertension Status: Chronic Plan: History of amlodipine use. BP is normal his hospital stay. Patient was counseled for PCP follow-up (7) Fluids/Electrolytes/Nutrition/Prophylaxis Status: Acute Plan: Fluids: PO hydration Electrolytes: Within normal limits at discharge Nutrition: NPO, then heart-healthy diet once cleared DVT Prophylaxis: Early ambulation. GI Prophylaxis: Not indicated (Tara Vidal MD R2) Problem Qualifiers (1) Acute drug intoxication: Qualified Codes: F19.929 - Other psychoactive substance use, unspecified with intoxication, unspecified Tara Vidal MD R2 Aug 12, 2017 10:43 Doreen Toro MD Aug 12, 2017 15:27
--- NOTE | 2017-08-12 14:53 | EKG ---
Date Performed: 08/11/2017 Time Performed: 11:32:24 PTAGE: 42 years EKG: Sinus rhythm MINIMAL VOLTAGE CRITERIA FOR LVH, CONSIDER NORMAL VARIANT Compared to previous tracing the prominent lateral ST segment depression is no longer evident. Clinical correlation will be necessary to assess the serial changes. BORDERLINE ECG PREVIOUS TRACING : 08/11/2017 08.03 DOCTOR: Bella Costello Interpretating Date/Time 08/12/2017 14:49:52
--- NOTE | 2017-08-12 14:58 | EKG ---
Date Performed: 08/11/2017 Time Performed: 15:39:20 PTAGE: 42 years EKG: Sinus rhythm NORMAL ECG PREVIOUS TRACING : 08/11/2017 11.32 Compared to prior tracing no significant change DOCTOR: Bella Costello Interpretating Date/Time 08/12/2017 14:53:51
--- NOTE | 2017-08-12 14:58 | EKG ---
Date Performed: 08/11/2017 Time Performed: 20:21:22 PTAGE: 42 years EKG: SINUS BRADYCARDIA BORDERLINE ECG PREVIOUS TRACING : 08/11/2017 15.39 Compared to prior tracing no significant change DOCTOR: Bella Costello Interpretating Date/Time 08/12/2017 14:53:40
== END 2017-08-12 12:38 | disposition home or self-care (01) | DRG 897 ==
LOC: NEPE 07:58 → NEDA 10:30 → OBSVTOIN 10:43 → N07A 13:11
PROVIDERS: ADMIT Family Medicine; ATTEND Family Medicine
DX: F11.129 Opioid abuse with intoxication, unspecified (principal); N17.9 Acute kidney failure, unspecified; J98.11 Atelectasis; I10 Essential (primary) hypertension; E87.6 Hypokalemia; F17.210 Nicotine dependence, cigarettes, uncomplicated; G89.29 Other chronic pain; M54.9 Dorsalgia, unspecified; R94.31 Abnormal electrocardiogram [ECG] [EKG]
CPT/HCPCS: 70450; 71010; 74176; 80048; 80053; 80307; 81001; 82948; 83690; 83735; 83880; 84100; 84443; 84484; 85025; 85610; 85730; 93005; 96365; 96375; J1650; J1956; J2310; J2405; J3411; J3480; J7040